=== PATIENT | female | born 2000 | race Caucasian/White ===

== ENCOUNTER 2021-05-22 12:37 | Emergency (ER) | payer SELFPAY | END 2021-05-22 14:48 | disposition home or self-care (01) | LOC: MW.ED 12:37 | DX: S63.601A Unspecified sprain of right thumb, initial encounter (principal); Z88.5 Allergy status to narcotic agent; W01.0XXA Fall on same level from slipping, tripping and stumbling without subsequent striking against object, initial encounter | CPT/HCPCS: 29130; 73140-26-F5; 73140-F5; 99282; 99283 ==

== ENCOUNTER 2023-04-19 18:33 | Emergency (ER) | payer SELFPAY ==
[2023-04-19] MEDS ORDERED: Ondansetron 4 MG/2 ML SDV IVPUSH ONE (19:34)
[2023-04-19] MEDS ORDERED: Sodium Chloride 0.9% 1,000 ML IV ONE (19:34)
[2023-04-19 19:46] LABS: BASOPHILS ABSOLUTE AUTO 0.03 K/uL (0.00-0.20); BASOPHILS PERCENT AUTO 0.3 % (0.0-1.0); EOSINOPHILS ABSOLUTE AUTO 0.01 K/uL (0.00-0.45); EOSINOPHILS PERCENT AUTO 0.1 % (0.0-6.0); HEMATOCRIT 42.9 % (37.0-47.0); HEMOGLOBIN 15.3 g/dL (12.0-16.0); IMMATURE GRAN ABSOLUTE AUTO 0.02 K/uL (0.00-0.05); IMMATURE GRAN PERCENT AUTO 0.2 % (0.0-0.4); LYMPHOCYTES ABSOLUTE AUTO 1.42 K/uL (1.00-4.80); LYMPHOCYTES PERCENT AUTO 15.9 % (24.0-44.0); MEAN CORPUSCULAR HEMOGLOBIN 30.5 pg (28.0-32.0); MEAN CORPUSCULAR HGB CONC 35.7 g/dL (32.0-36.0); MEAN CORPUSCULAR VOLUME 85.5 fL (83.0-99.0); MEAN PLATELET VOLUME 9.5 fL (9.4-12.3); MONOCYTES PERCENT AUTO 4.5 % (0.0-8.0); NEUTROPHILS ABSOLUTE AUTO 7.06 K/uL (1.80-7.70); PLATELET COUNT,PLT 257 K/uL (150-400); RED BLOOD CELL COUNT 5.02 M/uL (4.10-5.30); WHITE BLOOD CELL COUNT,WBC 8.94 K/uL (3.9-11.3)
[2023-04-19 20:08] LABS: A/G RATIO 1.1 (0.9-1.6); ALBUMIN 4.3 g/dL (3.4-5.0); BILIRUBIN TOTAL 0.6 mg/dL (0.2-1.0); CALCIUM 9.4 mg/dL (8.5-10.1); CARBON DIOXIDE,CO2 20.1 mmol/L (21.0-32.0); CREATININE 0.9 mg/dL (0.6-1.0); EST CRCL DRUG DOSING (CG) 83.95 mL/min; POTASSIUM,K 3.5 mmol/L (3.5-5.1); PROTEIN TOTAL,TP 8.1 g/dL (6.4-8.2)
[2023-04-19 21:09] LABS: CORONAVIRUS COVID-19 NAA NEGATIVE (NEGATIVE); INFLUENZA A NAA NEGATIVE (NEGATIVE); INFLUENZA B NAA NEGATIVE (NEGATIVE); RESPIRATORY SYNCYTIAL VIR NAA NEGATIVE (NEGATIVE)
== END 2023-04-19 21:20 | disposition home or self-care (01) ==
LOC: MW.ED 18:33
DX: R11.2 Nausea with vomiting, unspecified (principal); Z90.49 Acquired absence of other specified parts of digestive tract; Z88.5 Allergy status to narcotic agent
CPT/HCPCS: 0241U; 36415; 80053; 83690; 84703; 85025; 96361; 96374; 99284; J2405; J7030

== ENCOUNTER 2023-06-23 18:22 | Emergency (ER) | payer SELFPAY ==
[2023-06-23] MEDS: Sodium Chloride 0.9% 2.5 ML Syringe FLUSH PRN (18:40)
[2023-06-23] MEDS: Sodium Chloride 0.9% 1,000 ML IV STA (18:41)
[2023-06-23] MEDS: Sodium Chloride 0.9% 10 ML Syringe FLUSH PRN (18:41)
[2023-06-23] MEDS: Ondansetron 4 MG/2 ML SDV IVPUSH ONE (18:51)
[2023-06-23 18:57] LABS: BASOPHILS ABSOLUTE AUTO 0.03 K/uL (0.00-0.20); BASOPHILS PERCENT AUTO 0.3 % (0.0-1.0); EOSINOPHILS ABSOLUTE AUTO 0.01 K/uL (0.00-0.45); EOSINOPHILS PERCENT AUTO 0.1 % (0.0-6.0); HEMOGLOBIN 15.4 g/dL (12.0-16.0); IMMATURE GRAN ABSOLUTE AUTO 0.03 K/uL (0.00-0.05); IMMATURE GRAN PERCENT AUTO 0.3 % (0.0-0.4); LYMPHOCYTES ABSOLUTE AUTO 2.09 K/uL (1.00-4.80); MEAN CORPUSCULAR HEMOGLOBIN 31.2 pg (28.0-32.0); MEAN CORPUSCULAR HGB CONC 36.7 g/dL (32.0-36.0); MEAN CORPUSCULAR VOLUME 85.2 fL (83.0-99.0); MEAN PLATELET VOLUME 9.4 fL (9.4-12.3); MONOCYTES ABSOLUTE AUTO 0.67 K/uL (0.00-0.80); NEUTROPHILS ABSOLUTE AUTO 6.69 K/uL (1.80-7.70); NEUTROPHILS PERCENT AUTO 70.3 % (41.0-71.0); PLATELET COUNT,PLT 261 K/uL (150-400); RED BLOOD CELL COUNT 4.93 M/uL (4.10-5.30); WHITE BLOOD CELL COUNT,WBC 9.52 K/uL (3.9-11.3)
[2023-06-23 19:21] LABS: ALBUMIN 4.2 g/dL (3.4-5.0); BILIRUBIN TOTAL 0.7 mg/dL (0.2-1.0); CALCIUM 9.4 mg/dL (8.5-10.1); CARBON DIOXIDE,CO2 21.9 mmol/L (21.0-32.0); CREATININE 0.8 mg/dL (0.6-1.0); EST CRCL DRUG DOSING (CG) 94.44 mL/min; MAGNESIUM 1.9 mg/dL (1.8-2.4); POTASSIUM,K 3.3 mmol/L (3.5-5.1); PROTEIN TOTAL,TP 8.3 g/dL (6.4-8.2)
[2023-06-23] MEDS: diphenhydrAMINE 50 MG/ML SDV IVPUSH ONE (19:33)
[2023-06-23] MEDS: Metoclopramide 10 MG/2 ML SDV IVPUSH ONE (19:33)
[2023-06-23] MEDS: Sodium Chloride 0.9% 1,000 ML IV ONE (19:52)
== END 2023-06-23 21:14 | disposition home or self-care (01) ==
LOC: MW.ED 18:22
DX: O21.9 Vomiting of pregnancy, unspecified (principal); Z88.5 Allergy status to narcotic agent; Z75.8 Other problems related to medical facilities and other health care; Z3A.01 Less than 8 weeks gestation of pregnancy
CPT/HCPCS: 36415; 80053; 83735; 84703; 85025; 96361; 96374; 96375; 99284; J1200; J2405; J2765; J3490; J7030

== ENCOUNTER 2023-06-30 19:29 | Emergency (ER) | payer BC ==
[2023-06-30] MEDS: Metoclopramide 10 MG/2 ML SDV IVPUSH ONE (20:01)
[2023-06-30] MEDS: Sodium Chloride 0.9% 1,000 ML IV ONE (20:01)
[2023-06-30 20:06] LABS: BASOPHILS ABSOLUTE AUTO 0.04 K/uL (0.00-0.20); BASOPHILS PERCENT AUTO 0.4 % (0.0-1.0); EOSINOPHILS ABSOLUTE AUTO 0.02 K/uL (0.00-0.45); EOSINOPHILS PERCENT AUTO 0.2 % (0.0-6.0); HEMATOCRIT 42.9 % (37.0-47.0); HEMOGLOBIN 15.3 g/dL (12.0-16.0); IMMATURE GRAN ABSOLUTE AUTO 0.03 K/uL (0.00-0.05); IMMATURE GRAN PERCENT AUTO 0.3 % (0.0-0.4); MEAN CORPUSCULAR HEMOGLOBIN 30.8 pg (28.0-32.0); MEAN CORPUSCULAR HGB CONC 35.7 g/dL (32.0-36.0); MEAN CORPUSCULAR VOLUME 86.3 fL (83.0-99.0); MEAN PLATELET VOLUME 9.5 fL (9.4-12.3); MONOCYTES ABSOLUTE AUTO 0.69 K/uL (0.00-0.80); MONOCYTES PERCENT AUTO 6.9 % (0.0-8.0); NEUTROPHILS ABSOLUTE AUTO 7.33 K/uL (1.80-7.70); NEUTROPHILS PERCENT AUTO 73.2 % (41.0-71.0); PLATELET COUNT,PLT 232 K/uL (150-400); RED BLOOD CELL COUNT 4.97 M/uL (4.10-5.30); WHITE BLOOD CELL COUNT,WBC 10.01 K/uL (3.9-11.3)
[2023-06-30] MEDS: diphenhydrAMINE 50 MG/ML SDV IVPUSH ONE (20:36)
[2023-06-30 20:38] LABS: BILIRUBIN TOTAL 0.8 mg/dL (0.2-1.0); CALCIUM 9.7 mg/dL (8.5-10.1); CARBON DIOXIDE,CO2 23.9 mmol/L (21.0-32.0); CREATININE 0.7 mg/dL (0.6-1.0); EST CRCL DRUG DOSING (CG) 107.93 mL/min; POTASSIUM,K 3.6 mmol/L (3.5-5.1); PROTEIN TOTAL,TP 8.1 g/dL (6.4-8.2)
[2023-06-30] MEDS: Dextrose 5%-0.9% NaCl 1,000 ML IV STA (21:26)
== END 2023-06-30 21:34 | disposition home or self-care (01) ==
LOC: MW.ED 19:29
DX: O21.0 Mild hyperemesis gravidarum (principal); Z90.49 Acquired absence of other specified parts of digestive tract; Z79.899 Other long term (current) drug therapy; Z88.5 Allergy status to narcotic agent; Z3A.08 8 weeks gestation of pregnancy
CPT/HCPCS: 36415; 80053; 85025; 96361; 96374; 96375; 99284; J1200; J2765; J7030

== ENCOUNTER 2023-07-03 13:35 | Emergency (ER) | payer SELFPAY ==
[2023-07-03] MEDS: diphenhydrAMINE 50 MG/ML SDV IVPUSH ONE (14:53)
[2023-07-03] MEDS: Sodium Chloride 0.9% 1,000 ML IV ONE (14:53)
[2023-07-03] MEDS: Sodium Chloride 0.9% 10 ML Syringe FLUSH PRN (14:57)
[2023-07-03] MEDS: Sodium Chloride 0.9% 2.5 ML Syringe FLUSH PRN (14:58)
[2023-07-03] MEDS: Metoclopramide 10 MG/2 ML SDV IV ONE (15:00)
[2023-07-03 15:03] LABS: BASOPHILS ABSOLUTE AUTO 0.04 K/uL (0.00-0.20); BASOPHILS PERCENT AUTO 0.4 % (0.0-1.0); EOSINOPHILS ABSOLUTE AUTO 0.01 K/uL (0.00-0.45); EOSINOPHILS PERCENT AUTO 0.1 % (0.0-6.0); HEMATOCRIT 43.4 % (37.0-47.0); IMMATURE GRAN ABSOLUTE AUTO 0.04 K/uL (0.00-0.05); IMMATURE GRAN PERCENT AUTO 0.4 % (0.0-0.4); LYMPHOCYTES PERCENT AUTO 12.3 % (24.0-44.0); MEAN CORPUSCULAR HEMOGLOBIN 31.4 pg (28.0-32.0); MEAN CORPUSCULAR HGB CONC 36.9 g/dL (32.0-36.0); MEAN CORPUSCULAR VOLUME 85.1 fL (83.0-99.0); MEAN PLATELET VOLUME 9.9 fL (9.4-12.3); MONOCYTES ABSOLUTE AUTO 0.77 K/uL (0.00-0.80); MONOCYTES PERCENT AUTO 6.8 % (0.0-8.0); NEUTROPHILS ABSOLUTE AUTO 9.09 K/uL (1.80-7.70); PLATELET COUNT,PLT 207 K/uL (150-400); WHITE BLOOD CELL COUNT,WBC 11.35 K/uL (3.9-11.3)
[2023-07-03] MEDS: Metoclopramide 10 MG/2 ML SDV IVPUSH ONE (15:13)
[2023-07-03 15:37] LABS: CALCIUM 9.6 mg/dL (8.5-10.1); CARBON DIOXIDE,CO2 22.4 mmol/L (21.0-32.0); CREATININE 0.6 mg/dL (0.6-1.0); EST CRCL DRUG DOSING (CG) 125.92 mL/min; POTASSIUM,K 3.6 mmol/L (3.5-5.1)
[2023-07-03 17:32] LABS: GLUCOSE,URINE NEGATIVE (NEGATIVE); KETONES,URINE >=80 mg/dL (NEGATIVE); LEUKOCYTE ESTERASE,URINE TRACE (NEGATIVE); NITRITE,URINE NEGATIVE (NEGATIVE); OCCULT BLOOD,URINE NEGATIVE (NEGATIVE); PROTEIN,URINE TRACE mg/dL (NEGATIVE)
[2023-07-03 17:49] LABS: BILIRUBIN,URINE SMALL (NEGATIVE)
[2023-07-03 17:50] LABS: COLOR,URINE DARK YELLOW
[2023-07-03 17:52] LABS: APPEARANCE,URINE SLT CLOUDY
[2023-07-03 17:55] LABS: BACTERIA,URINE 2+ (NEGATIVE); EPITHELIAL CELLS,URINE MODERATE (NONE-FEW); MUCUS,URINE HEAVY (NONE-MOD); RBC,URINE 0-2 (0-2/HPF)
== END 2023-07-03 18:39 | disposition home or self-care (01) ==
LOC: MW.ED 13:35
DX: O23.40 Unspecified infection of urinary tract in pregnancy, unspecified trimester (principal); N39.0 Urinary tract infection, site not specified; O21.9 Vomiting of pregnancy, unspecified; Z88.5 Allergy status to narcotic agent; Z79.899 Other long term (current) drug therapy; Z86.19 Personal history of other infectious and parasitic diseases; Z75.8 Other problems related to medical facilities and other health care; Z3A.09 9 weeks gestation of pregnancy
CPT/HCPCS: 36415; 80048; 81001; 81003; 85025; 87086; 96361; 96374; 96375; 99284; J1200; J2765; J3490; J7030

== ENCOUNTER 2023-07-25 05:49 | Emergency (ER) | payer BC ==
[2023-07-25] MEDS: Sodium Chloride 0.9% 2.5 ML Syringe FLUSH PRN (06:13)
[2023-07-25] MEDS: Sodium Chloride 0.9% 10 ML Syringe FLUSH PRN (06:13)
[2023-07-25 06:24] LABS: BASOPHILS ABSOLUTE AUTO 0.02 K/uL (0.00-0.20); BASOPHILS PERCENT AUTO 0.2 % (0.0-1.0); HEMATOCRIT 43.2 % (37.0-47.0); HEMOGLOBIN 15.4 g/dL (12.0-16.0); IMMATURE GRAN ABSOLUTE AUTO 0.04 K/uL (0.00-0.05); IMMATURE GRAN PERCENT AUTO 0.5 % (0.0-0.4); LYMPHOCYTES ABSOLUTE AUTO 1.69 K/uL (1.00-4.80); LYMPHOCYTES PERCENT AUTO 19.4 % (24.0-44.0); MEAN CORPUSCULAR HGB CONC 35.6 g/dL (32.0-36.0); MEAN CORPUSCULAR VOLUME 87.1 fL (83.0-99.0); MEAN PLATELET VOLUME 9.4 fL (9.4-12.3); MONOCYTES ABSOLUTE AUTO 0.44 K/uL (0.00-0.80); MONOCYTES PERCENT AUTO 5.1 % (0.0-8.0); NEUTROPHILS PERCENT AUTO 74.8 % (41.0-71.0); PLATELET COUNT,PLT 241 K/uL (150-400); RED BLOOD CELL COUNT 4.96 M/uL (4.10-5.30); WHITE BLOOD CELL COUNT,WBC 8.69 K/uL (3.9-11.3)
[2023-07-25] MEDS: Ondansetron 4 MG/2 ML SDV IVPUSH ONE (06:40)
[2023-07-25 07:12] LABS: A/G RATIO 0.7 (0.9-1.6); ALBUMIN 3.4 g/dL (3.4-5.0); BILIRUBIN TOTAL 0.6 mg/dL (0.2-1.0); CALCIUM 9.2 mg/dL (8.5-10.1); CARBON DIOXIDE,CO2 22.4 mmol/L (21.0-32.0); CREATININE 0.8 mg/dL (0.6-1.0); EST CRCL DRUG DOSING (CG) 94.44 mL/min; POTASSIUM,K 3.5 mmol/L (3.5-5.1); PROTEIN TOTAL,TP 8.2 g/dL (6.4-8.2)
== END 2023-07-25 09:45 | disposition home or self-care (01) ==
LOC: MW.ED 05:49
DX: O21.0 Mild hyperemesis gravidarum (principal); Z88.5 Allergy status to narcotic agent; Z88.8 Allergy status to other drugs, medicaments and biological substances; Z79.899 Other long term (current) drug therapy; Z75.8 Other problems related to medical facilities and other health care; Z3A.10 10 weeks gestation of pregnancy
CPT/HCPCS: 36415; 80053; 83690; 84702; 85025; 96374; 99284; J2405; J3490

== ENCOUNTER 2024-02-10 03:47 | Inpatient (IN) | payer BC ==
[2024-02-10] MEDS ORDERED: Sodium Chloride 0.9% 10 ML Syringe FLUSH PRN ×2 (04:25→11:03)
[2024-02-10] MEDS ORDERED: Sodium Chloride 0.9% 2.5 ML Syringe FLUSH PRN ×2 (04:25→11:03)
[2024-02-10] MEDS ORDERED: Labetalol 100 MG/20 ML MDV IVPUSH PRN (04:25)
[2024-02-10] MEDS ORDERED: Calcium Gluconate 10% 1 GM/10 ML SDV IV PRN (04:25)
[2024-02-10] MEDS ORDERED: Sodium Chloride 0.9% 20 ML SDV IV PRN (04:25)
[2024-02-10 04:52] LABS: HEMATOCRIT 36.2 % (37.0-47.0); HEMOGLOBIN 12.8 g/dL (12.0-16.0); MEAN CORPUSCULAR HEMOGLOBIN 29.8 pg (28.0-32.0); MEAN CORPUSCULAR HGB CONC 35.4 g/dL (32.0-36.0); MEAN CORPUSCULAR VOLUME 84.2 fL (83.0-99.0); MEAN PLATELET VOLUME 11.4 fL (9.4-12.3); PLATELET COUNT,PLT 190 K/uL (150-400); WHITE BLOOD CELL COUNT,WBC 6.56 K/uL (3.9-11.3)
[2024-02-10] MEDS: Lactated Ringers 1,000 ML IV SCH (04:58)
[2024-02-10] MEDS: Magnesium Sulfate/Water Premix 4 GM in Premix Bag 1 BAG IV ONE (04:59)
[2024-02-10 05:14] LABS: PROTEIN,URINE RANDOM 32.3 mg/dL (<11.9)
[2024-02-10] MEDS ORDERED: Misoprostol 25 MCG (1/4 of 100 MCG) Tab VAG PRN (05:19)
[2024-02-10] MEDS ORDERED: Terbutaline 1 MG/ML SDV SUBCUT PRN (05:19)
[2024-02-10 05:20] LABS: A/G RATIO 0.7 (0.9-1.6); ALBUMIN 2.8 g/dL (3.4-5.0); BILIRUBIN TOTAL 0.3 mg/dL (0.2-1.0); CALCIUM 9.6 mg/dL (8.5-10.1); CREATININE 0.8 mg/dL (0.6-1.0); EST CRCL DRUG DOSING (CG) 94.44 mL/min; POTASSIUM,K 3.5 mmol/L (3.5-5.1); PROTEIN TOTAL,TP 6.7 g/dL (6.4-8.2); URIC ACID 5.8 mg/dL (2.6-7.2)
[2024-02-10] MEDS: Misoprostol 25 MCG (1/4 of 100 MCG) Tab VAG PRN (05:20)
[2024-02-10] MEDS: Misoprostol 25 MCG (1/4 of 100 MCG) Tab PO ONE (05:20)
[2024-02-10] MEDS: Magnesium Sulfate/Water Premix 20 GM/500 ML BAG IV SCH (05:21)
[2024-02-10] MEDS: Ampicillin 2 GM in Sodium Chloride 0.9% 100 ML IV ONE (05:22)
[2024-02-10 05:23] LABS: CREATININE,URINE RAND 327.2 mg/dL; PROTEIN CREATININE RATIO,URINE 0.1
[2024-02-10] MEDS: Ondansetron 4 MG/2 ML SDV IVPUSH PRN (05:27)
[2024-02-10] MEDS ORDERED: ePHEDrine 50 MG/ML SDV IVPUSH PRN (06:03)
[2024-02-10] MEDS ORDERED: Phenylephrine HCl In 0.9% NaCl 1 MG/10 ML Syringe IVPUSH PRN (06:03)
[2024-02-10] MEDS ORDERED: dexmedeTOMIDine HCl 200 MCG/2 ML SDV EPIDUR SCH (06:15)
[2024-02-10] MEDS: Ampicillin 1 GM in Sodium Chloride 0.9% 50 ML IV SCH ×2 (09:22→13:24)
[2024-02-10] MEDS: Ropivacaine HCl/PF 400 MG in Premix Bag 1 BAG EPIDUR SCH (10:35)
[2024-02-10] MEDS ORDERED: Ondansetron 4 MG/2 ML SDV IVPUSH PRN (11:03)
[2024-02-10] MEDS ORDERED: oxyCODONE 5 MG Tab PO PRN (11:03)
[2024-02-10] MEDS ORDERED: Tranexamic Acid in NACL,ISO-OS 1,000 MG/100 ML Bag IV ONE (11:03)
[2024-02-10] MEDS ORDERED: Carboprost Tromethamine 250 MCG/1 mL Vial IM PRN (11:03)
[2024-02-10] MEDS ORDERED: Misoprostol 200 MCG Tab RECTAL PRN (11:03)
[2024-02-10] MEDS ORDERED: Ketorolac 30 MG/ML SDV IVPUSH SCH (11:15)
[2024-02-10] MEDS ORDERED: Acetaminophen 500 MG Tab PO SCH (11:15)
[2024-02-10] MEDS ORDERED: Ibuprofen 800 MG Tab PO SCH (11:15)
[2024-02-10] MEDS: Diphtheria,Pertussis(Acell),Tetanus Vaccine 0.5 ML Syringe IM ONE (13:33)
[2024-02-10] MEDS: metroNIDAZOLE 250 MG Tab PO SCH (13:34)
[2024-02-10] MEDS: Measles, Mumps & Rubella Vaccine 0.5 ML SDV SUBCUT ONE (13:34)
[2024-02-10] MEDS: Methylergonovine 0.2 MG/1 ML Amp IM ONE (13:34)
[2024-02-10] MEDS: Tranexamic Acid in NACL,ISO-OS 1,000 MG in Premix Bag 1 BAG IV ONE (13:35)
[2024-02-10] MEDS ORDERED: Cephalexin 500 MG Cap PO SCH (14:00)
[2024-02-10] MEDS: Oxytocin/0.9 % Sodium Chloride 30 UNIT/500 ML BAG IV SCH (16:28)
[2024-02-10] MEDS: Famotidine 20 MG/2 ML SDV IVPUSH ONE (17:55)
[2024-02-10 17:59] LABS: HEMATOCRIT 36.8 % (37.0-47.0); HEMOGLOBIN 12.8 g/dL (12.0-16.0); MEAN CORPUSCULAR HEMOGLOBIN 29.7 pg (28.0-32.0); MEAN CORPUSCULAR HGB CONC 34.8 g/dL (32.0-36.0); MEAN CORPUSCULAR VOLUME 85.4 fL (83.0-99.0); MEAN PLATELET VOLUME 10.7 fL (9.4-12.3); PLATELET COUNT,PLT 201 K/uL (150-400); RED BLOOD CELL COUNT 4.31 M/uL (4.10-5.30); WHITE BLOOD CELL COUNT,WBC 7.99 K/uL (3.9-11.3)
[2024-02-10 18:22] LABS: A/G RATIO 0.7 (0.9-1.6); ALBUMIN 2.8 g/dL (3.4-5.0); BILIRUBIN TOTAL 0.4 mg/dL (0.2-1.0); CALCIUM 7.7 mg/dL (8.5-10.1); CARBON DIOXIDE,CO2 22.8 mmol/L (21.0-32.0); CREATININE 0.9 mg/dL (0.6-1.0); EST CRCL DRUG DOSING (CG) 83.95 mL/min; POTASSIUM,K 3.7 mmol/L (3.5-5.1); PROTEIN TOTAL,TP 6.6 g/dL (6.4-8.2)
[2024-02-10] MEDS ORDERED: Docusate Sodium 100 MG Cap PO PRN (20:32)
[2024-02-10] MEDS ORDERED: Simethicone 80 MG Tab.Chew PO PRN (20:32)
[2024-02-10] MEDS ORDERED: Acetaminophen 500 MG Tab PO PRN (20:32)
[2024-02-10] MEDS ORDERED: Docusate Sodium 100 MG Cap PO SCH (21:00)
[2024-02-10 21:17] LABS: PH,UMBILICAL ARTERIAL 7.239 (7.18-7.38); PH,UMBILICAL VENOUS 7.291 (7.25-7.45)
[2024-02-10] MEDS: Witch Hazel Medicated Pads 40/Jar TOP PRN (22:24)
[2024-02-10] MEDS: Ibuprofen 800 MG Tab PO PRN (22:24)
[2024-02-10] MEDS: Benzocaine/Menthol 20%-0.5% Spray 78 GM Cannister TOP PRN (22:25)
[2024-02-11 06:13] LABS: HEMOGLOBIN 11.2 g/dL (12.0-16.0); MEAN CORPUSCULAR HEMOGLOBIN 29.6 pg (28.0-32.0); MEAN CORPUSCULAR VOLUME 84.4 fL (83.0-99.0); MEAN PLATELET VOLUME 10.7 fL (9.4-12.3); PLATELET COUNT,PLT 180 K/uL (150-400); RED BLOOD CELL COUNT 3.79 M/uL (4.10-5.30); WHITE BLOOD CELL COUNT,WBC 8.56 K/uL (3.9-11.3)
[2024-02-11] MEDS ORDERED: oxyCODONE 5 MG Tab PO PRN (11:04)
[2024-02-11] MEDS ORDERED: Ibuprofen 800 MG Tab PO SCH (12:00)
[2024-02-11] MEDS: NIFEdipine 30 MG Tab.ER PO STA (19:31)
[2024-02-12] MEDS: Lanolin 100% Cream 7 GM Tube TOP PRN (02:07)
[2024-02-12 13:23] LABS: HEPATITIS C AB# 0.14 INDEX (<0.8)
[2024-02-12 16:10] LABS: C. TRACHOMATIS BY PCR NOT DETECTED; N. GONORRHOEAE BY PCR NOT DETECTED
== END 2024-02-12 18:00 | disposition home or self-care (01) | DRG 560 ==
LOC: MW.OBCHECK 03:47 → MW.OB 03:49 → MW.OBCHECK 04:26 → MW.OB 04:46 → OBSVTOIN 11:03 → MW.OB 23:27
PROVIDERS: ADMIT Obstetrics & Gynecology; ATTEND Obstetrics & Gynecology
PROC: 10E0XZZ Delivery of Products of Conception, External Approach (ICD-10-PCS; principal; 2024-02-10)
PROC: 3E0P7VZ Introduction of Hormone into Female Reproductive, Via Natural or Artificial Opening (ICD-10-PCS; 2024-02-10)
PROC: 3E033VJ Introduction of Other Hormone into Peripheral Vein, Percutaneous Approach (ICD-10-PCS; 2024-02-10)
PROC: 3E0DXGC Introduction of Other Therapeutic Substance into Mouth and Pharynx, External Approach (ICD-10-PCS; 2024-02-10)
PROC: 0UQMXZZ Repair Vulva, External Approach (ICD-10-PCS; 2024-02-10)
PROC: 3E0R3BZ Introduction of Anesthetic Agent into Spinal Canal, Percutaneous Approach (ICD-10-PCS; 2024-02-10)
PROC: 00HU33Z Insertion of Infusion Device into Spinal Canal, Percutaneous Approach (ICD-10-PCS; 2024-02-10)
DX: O14.14 Severe pre-eclampsia complicating childbirth (principal); Z37.0 Single live birth; O99.824 Streptococcus B carrier state complicating childbirth; O99.214 Obesity complicating childbirth; E66.01 Morbid (severe) obesity due to excess calories; O70.0 First degree perineal laceration during delivery; Z3A.38 38 weeks gestation of pregnancy
CPT/HCPCS: 01967; 36415; 51702; 59025; 59409; 80053; 82570; 82803; 83735; 84156; 84550; 85027; 86803; 86850; 86900; 86901; 87491; 87591; A9270-GY; J0290; J2405; J2590; J2795; J3475; J3490; J7120

== ENCOUNTER 2024-07-09 14:43 | Emergency (ER) | payer BC | END 2024-07-09 16:36 | disposition home or self-care (01) | LOC: MW.ED 14:43 | DX: H66.91 Otitis media, unspecified, right ear (principal); E66.9 Obesity, unspecified; Z68.37 Body mass index [BMI] 37.0-37.9, adult; Z86.16 Personal history of COVID-19; Z90.49 Acquired absence of other specified parts of digestive tract; Z88.5 Allergy status to narcotic agent; Z79.899 Other long term (current) drug therapy | CPT/HCPCS: 99282 ==

== ENCOUNTER 2025-03-02 09:54 | Emergency (ER) | payer BC ==
[2025-03-02] MEDS: Ketorolac 30 MG/ML SDV IM ONE (13:23)
== END 2025-03-02 13:31 | disposition home or self-care (01) ==
LOC: MW.ED 09:54
DX: M79.671 Pain in right foot (principal); E66.9 Obesity, unspecified; Z75.3 Unavailability and inaccessibility of health-care facilities; Z88.8 Allergy status to other drugs, medicaments and biological substances; Z90.49 Acquired absence of other specified parts of digestive tract; Z68.37 Body mass index [BMI] 37.0-37.9, adult
CPT/HCPCS: 73620; 96372; 99283; A9270; J1885